=== PATIENT | male | born 1995 | race American Indian/Alaskan Native ===

== ENCOUNTER 2021-06-07 17:13 | Observation (INO) | payer OTHER ==
[2021-06-07] MEDS ORDERED: HYDROcodone/ACETAMINOPHEN 5-325 MG TAB PO ONE (19:55)
[2021-06-07] MEDS ORDERED: TETANUS,DIPH,PERTUSS(ACELL) VACCINE 0.5 ML SYRINGE IM ONE (19:55)
--- NOTE | 2021-06-07 19:57 | Emergency Department Report ---
- General Chief complaint: Extremity Injury, Upper Stated complaint: SPIDER BITE Time Seen by Provider: 06/07/21 19:45 Source: patient Mode of arrival: Ambulatory Limitations: No Limitations - History of Present Illness Initial comments: pt is a 25 yo male who presents to the ED with c/o a right hand infection that initially began last week. he states it initially started as a small bump to the dorsum of the right hand. He states he popped it on its own and there was purulent and bloody drainage. He states then over the next few days his hand became swollen, red, warm to touch. He denies any more drainage. He denies any fever, nausea, vomiting, numbness, weakness. He states he has pain with movement. Patient denies any past medical history. No allergies to medicati ons. He is unsure of his last tetanus immunization. - Related Data Allergies Allergy/AdvReac Type Severity Reaction Status Date / Time No Known Allergies Allergy Verified 06/07/21 19:59 Abscess Boil HPI - HPI Chief Complaint: Extremity Injury, Upper Stated Complaint: SPIDER BITE Time Seen by Provider: 06/07/21 19:45 Allergies/Adverse Reactions: Allergies Allergy/AdvReac Type Severity Reaction Status Date / Time No Known Allergies Allergy Verified 06/07/21 19:59 ED Review of Systems ROS: Stated complaint: SPIDER BITE Other details as noted in HPI Comment: All other systems reviewed and negative ED Past Medical Hx - Past Medical History Previous Medical History?: No - Surgical History Past Surgical History?: No ED Physical Exam - General Limitations: No Limitations General appearance: alert, in no apparent distress - Head Head exam: Present: atraumatic, normocephalic - Eye Eye exam: Present: normal appearance - ENT ENT exam: Present: mucous membranes moist - Respiratory Respiratory exam: Absent: respiratory distress, accessory muscle use - Neurological Exam Neurological exam: Present: alert, oriented X3 - Psychiatric Psychiatric exam: Present: normal affect, normal mood - Skin Skin exam: Present: warm, dry, other (small very superficial abrasion to the right dorsum of the hand, there is edema of the hand, erythema, increased warmth, no obvious fluctuance or drainage, no crepitus or necrosis, able to move the digits with some discomfort upon movement of the right little finger, neurovascularly intact) ED Course Vital Signs 06/07/21 19:26 Temperature 98.5 F Pulse Rate 107 H Respiratory 18 Rate Blood Pressure 110/72 O2 Sat by Pulse 94 Oximetry - Reevaluation(s) Reevaluation #1: 06/07/21 19:[address] Pratt, ER attending who evaluated patient at bedside, states that patient needs admission to the hospitalist service to give IV Ancef, update tetanus - Consultations Consultation #1: 06/07/21 20:06 Discussed case with OLGA Warren for Dr. Mccormack hospitalist who will accept and resume care of patient, will admit to hospital service ED Medical Decision Making - Medical Decision Making pt is a 25 yo male who presents to the ED with c/o a right hand infection that initially began last week. he states it initially started as a small bump to the dorsum of the right hand. He states he popped it on its own and there was purulent and bloody drainage. He states then over the next few days his hand became swollen, red, warm to touch. He denies any more drainage. He denies any fever, nausea, vomiting, numbness, weakness. He states he has pain with movement. Patient denies any past medical history. No allergies to medications. He is unsure of his last tetanus immunization. vss. on exam: small very superficial abrasion to the right dorsum of the hand, there is edema of the hand, erythema, increased warmth, no obvious fluctuance or drainage, no crepitus or necrosis, able to move the digits with some discomfort upon movement of the right little finger, neurovascularly intact. Examination appears consistent with [id number] cellulitis.Discussed case with Dr. Pratt, ER attending who evaluated patient at bedside, states that patient needs admission to the hospitalist service to give IV Ancef, update tetanus. Discussed case with OLGA Warren for Dr. Mccormack, hospitalist who will accept and resume care of patient, will admit to hospital service Critical care attestation.: If time is entered above; I have spent that time in minutes in the direct care of this critically ill patient, excluding procedure time. ED Disposition Clinical Impression: Cellulitis of hand Disposition: 02 [facility] Is pt being admited?: Yes Does the pt Need Aspirin: No Condition: Stable Time of Disposition: 20:07 Print Language: ICELANDIC
--- NOTE | 2021-06-07 20:02 | Event Note ---
Date of service: 06/07/21 Face to Face: For this encounter I have reviewed the PA/SUPERVISOR VARNISH documentation, treatment plan, medical decision making, and I had face to face time with this patient. Patient had presented secondary to right hand pain. He is right-hand dominant. He states that he had popped a pimple or pustule on the ulnar aspect of the right hand. This was dorsally located. Over the last 48 hours, has had significant pain and swelling. This is involving the right hand. He cannot move the right little finger without pain. He states he cannot move the wrist without pain. Patient does not know about his tetanus status. On exam, the patient has significant edema involving the ulnar aspect of the right hand that extends to the thumb area. There is erythema associate with this and warmth. There is edema involving the wrist. Patient has brisk capillary refill. Has normal sensation of the digits. There is a wound to the dorsum of the right hand in the ulnar distribution where the patient points to where he had a pustule initially.
--- NOTE | 2021-06-07 20:37 | History and Physical Report ---
History of Present Illness Date of examination: 06/07/21 Date of admission: 06/07/21 Chief complaint: arm infection/abscess History of present illness: This is a 25-year-old male seen in the ED at bedside. Patient presented in the ED with right hand infection/abscess/edema and pain. Pain level is 10/10. He said the infection started with a bump and he picked on it and he has drainage with pus. He said after "after the next day he has started swelling and getting painful and he decided to come to the hospital. He denies chest pain, shortness of breath, nausea and vomiting. He admits to tobacco use but denies chronic alcohol and drug use. I reviewed patient medication record and vital signs. Patient patient ED record she is not sure if he had had tetanus immunization. Past History Past Medical History: No medical history Past Surgical History: Other (right thumb laceration and incision as a child) Social history: smoking, other (marijuana use). denies: alcohol abuse, prescription drug abuse, IV drug use Family history: no significant family history Medications and Allergies Allergies Allergy/AdvReac Type Severity Reaction Status Date / Time No Known Allergies Allergy Verified 06/07/21 19:59 Active Meds: Active Medications Cefazolin Sodium 2 gm/ Sodium (Chloride) 100 mls @ 200 mls/hr IV ONCE ONE; Protocol Stop: 06/07/21 20:24 Review of Systems Constitutional: no weakness, no malaise Ears, nose, mouth and throat: no epistaxis, no bleeding gums Gastrointestinal: no melena Integumentary: sores, other (right arm with cellulites and abscess) Psychiatric: anxiety Hematologic/Lymphatic: no lymphedema Exam - Constitutional Vitals: Temp Pulse Resp BP Pulse Ox 98.5 F 107 H 18 110/72 94 06/07/21 19:26 06/07/21 19:26 06/07/21 19:26 06/07/21 19:26 06/07/21 19:26 General appearance: Present: mild distress, well-nourished - EENT Eyes: Present: PERRL ENT: hearing intact, clear oral mucosa - Neck Neck: Present: supple, normal ROM - Respiratory Respiratory effort: normal Respiratory: bilateral: CTA - Cardiovascular Heart Sounds: Present: S1 & S2. Absent: rub, click - Extremities Extremities: pulses symmetrical, abnormal (right arm edema and tenderness) Extremity abnormal: edema (right arm), tenderness (right arm) Peripheral Pulses: within normal limits - Abdominal General gastrointestinal: Present: soft, non-tender, non-distended, normal bowel sounds Male genitourinary: Present: normal - Integumentary Integumentary: Present: clear, warm, dry - Musculoskeletal Musculoskeletal: gait normal, strength equal bilaterally - Psychiatric Psychiatric: appropriate mood/affect, intact judgment & insight, cooperative - Neurologic Neurologic: CNII-XII intact, moves all extremities - Allied Health Allied health notes reviewed: nursing Results - Labs CBC & Chem 7: 06/07/21 20:07 06/07/21 20:07 Assessment and Plan - Patient Problems (1) Cellulitis of hand Current Visit: No Status: Inactive Plan to address problem: Right arm cellulitis and edema Empiric antibiotic Consult infectious disease x-ray right -r/o osteomylitis (2) Tobacco abuse Current Visit: No Status: Acute Plan to address problem: Patient admits tobacco use about 6 sticks daily Discussed tobacco use cessation (3) Marijuana abuse Current Visit: No Status: Acute Plan to address problem: Discussed marijuana use cessation (4) DVT prophylaxis Current Visit: Yes Status: Acute Plan to address problem: Subcutaneous Lovenox
[2021-06-07] MEDS ORDERED: NALOXONE 0.4 MG/1 ML INJ IV PRN (20:50)
[2021-06-07] MEDS ORDERED: SENNOSIDES 8.6 MG TAB PO PRN (20:50)
[2021-06-07] MEDS ORDERED: oxyCODONE /ACETAMINOPHEN 5-325MG TAB PO PRN (20:50)
[2021-06-07] MEDS ORDERED: MAGNESIUM HYDROXIDE (MOM) ORAL LIQD UDC PO PRN (20:50)
[2021-06-07] MEDS ORDERED: ALUM-MAG HYDROXIDE-SIMETHICONE 200-200-20MG/5ML ORAL LIQD 30 ML PO PRN (20:50)
[2021-06-07] MEDS ORDERED: ACETAMINOPHEN 325 MG TAB PO PRN ×2 (20:50)
[2021-06-07] MEDS ORDERED: ONDANSETRON 4 MG/2 ML INJ IV PRN (20:50)
[2021-06-07] MEDS ORDERED: HYDROmorphone 1 MG/1 ML INJ IV PRN (20:50)
[2021-06-07 20:53] LABS: Basophils % (Auto) 0.3 % (0.0-1.8); Eosinophils # (Auto) 0.1 K/mm3 (0.0-0.4); Eosinophils % (Auto) 0.7 % (0.0-4.3); Hematocrit 43.2 % (35.5-45.6); Hemoglobin 14.5 gm/dl (11.8-15.2); Lymphocytes % (Auto) 12.6 % (13.4-35.0); Mean Corpuscular HGB Conc 34 % (32-34); Mean Corpuscular Volume 91 fl (84-94); Monocytes # (Auto) 0.9 K/mm3 (0.0-0.8); Monocytes % (Auto) 11.4 % (0.0-7.3); Platelet Count 291 K/mm3 (140-440); Red Blood Count 4.77 M/mm3 (3.65-5.03); Red Cell Distribution Width 12.6 % (13.2-15.2)
[2021-06-07 20:55] LABS: Alanine Aminotransferase 21 units/L (7-56); BUN/Creatinine Ratio 10; Blood Urea Nitrogen 8 mg/dL (9-20); Calcium 9.7 mg/dL (8.4-10.2); Hemolysis Index 1
[2021-06-07] MEDS ORDERED: VANCOMYCIN 1,500 MG in SODIUM CHLORIDE 0.9% 500 ML 500 ML IV ONE (22:00)
[2021-06-07] MEDS ORDERED: VANCOMYCIN PHARMACY TO DOSE IV SCH (22:00)
[2021-06-07] MEDS: SODIUM CHLORIDE 0.9% 1000 ML 1,000 ML IV SCH (22:45)
[2021-06-07] MEDS: MORPHINE 2 MG/1 ML INJ IV PRN (22:47)
[2021-06-07] MEDS: FAMOTIDINE 20 MG/2 ML INJ IV SCH (22:48)
[2021-06-08] MEDS: AMPICILLIN/SULBACTA 3GM/100ML 3 GM/100 ML BAG IV SCH ×4 (00:14→18:00)
[2021-06-08] MEDS ORDERED: methylPREDNISolone Sod Suc 60 MG in SODIUM CHLORIDE 0.9% 100 ML IV ONE (01:37)
[2021-06-08] MEDS: SODIUM CHLORIDE 0.9% 1000 ML 1,000 ML IV SCH (02:11)
[2021-06-08] MEDS ORDERED: methylPREDNISolone Sod Succinate 40 MG/1 ML INJ IV ONE ×2 (02:20)
[2021-06-08] MEDS ORDERED: diphenhydrAMINE 50 MG/ML VIAL IV ONE (02:36)
--- NOTE | 2021-06-08 08:47 | XRay Report ---
RIGHT HAND 2 VIEWS INDICATION: pain swelling abscess/poss osteomylitis of right hand. COMPARISON: None. IMPRESSION: There is severe diffuse soft tissue swelling on the dorsum of the hand. No obvious soft tissue gas or foreign body. The bony structures appear intact with normal mineralization. No findings to suggest osteomyelitis on x-ray. No significant DJD. Signer Name: Brennan Ziegler Jr, MD Signed: 06/08/2021 8:42 AM Workstation Name: [id number]
--- NOTE | 2021-06-08 09:41 | Consultation ---
History of Present Illness Consult date: 06/08/21 Reason for consult: wound care - History of present illness History of present illness: 25-year-old male who presented to the emergency room yesterday with a right swollen hand that he says 2 to 3 days prior had a scab that he picked off and immediately drained bloody purulent fluid. He says that it got better but when he woke up the next day his hand was extremely swollen from the wrist down to his fingertips. He complains of 10 out of 10 pain and has never experienced before. He is unsure how this started and denies any definitive trauma or bug bite. Patient had an x-ray that shows no sign of gas or bony involvement. Past History Past Medical History: No medical history Past Surgical History: Other (right thumb laceration and incision as a child) Social history: smoking, other (marijuana use). denies: alcohol abuse, prescr iption drug abuse, IV drug use Family history: no significant family history Medications and Allergies Allergies Allergy/AdvReac Type Severity Reaction Status Date / Time No Known Allergies Allergy Verified 06/07/21 19:59 Active Meds: Active Medications Acetaminophen (Acetaminophen 325 Mg Tab) 650 mg PO Q4H PRN PRN Reason: Pain MILD(1-3)/Fever >100.5/WALDRON Last Admin: 06/08/21 00:11 Dose: 650 mg Documented by: Al Hydrox/Mg Hydrox/Simethicone (Alum-Mag Hydroxide-Simethicone [phone]/5ml Oral Liqd 30 Ml) 30 ml PO Q4H PRN PRN Reason: Indigestion Famotidine (Famotidine 20 Mg/2 Ml Inj) 20 mg IV BID [facility] Last Admin: 06/07/21 22:48 Dose: 20 mg Documented by: Sodium Chloride (Nacl 0.9% 1000 Ml) 1,000 mls @ 75 mls/hr IV DIRECT ERNESTO Last Admin: 06/08/21 02:11 Dose: 75 mls/hr Documented by: Ampicillin Sodium/Sulbactam Sodium (Unasyn/Ns 3 Gm/100 Ml) 3 gm in 100 mls @ 200 mls/hr IV Q6HR [facility]NE[facility]; Protocol Last Admin: 06/08/21 06:58 Dose: 200 mls/hr Documented by: Vancomycin HCl 1,250 mg/ (Sodium Chloride) 275 mls @ 166.667 mls/hr IV Q8H [facility] Magnesium Hydroxide (Magnesium Hydroxide (Mom) Oral Liqd Udc) 30 ml PO Q4H PRN PRN Reason: Constipation Morphine Sulfate (Morphine 2 Mg/1 Ml Inj) 2 mg IV Q4H PRN PRN Reason: Pain, Moderate (4-6) Last Admin: 06/07/21 22:47 Dose: 2 mg Documented by: Naloxone HCl (Naloxone 0.4 Mg/1 Ml Inj) 0.1 mg IV Q2MIN PRN PRN Reason: Res Rate </= 8 or 02 SAT < 92% Ondansetron HCl (Ondansetron 4 Mg/2 Ml Inj) 4 mg IV Q8H PRN PRN Reason: Nausea And Vomiting Oxycodone/Acetaminophen (Oxycodone /Acetaminophen 5-325mg Tab) 1 tab PO Q6H PRN PRN Reason: Pain, Moderate (4-6) Senna (Sennosides 8.6 Mg Tab) 8.6 mg PO Q12HR PRN PRN Reason: Constipation Sodium Chloride (Sodium Chloride 0.9% 10 Ml Flush Syringe) 10 ml IV BID [facility] Last Admin: 06/07/21 22:48 Dose: 10 ml Documented by: Review of Systems All systems: negative - Muskuloskeletal other (Right hand pain, swelling, limited motion due to pain) right: hand pain, hand swelling, hip stiffness Exam Vital Signs Temp Pulse Resp BP Pulse Ox 98.5 F 107 H 18 110/72 94 06/07/21 19:26 06/07/21 19:26 06/07/21 19:26 06/07/21 19:26 06/07/21 19:26 - General physical appearance Positive: well developed, well nourished, no distress, moderate pain - Respiratory Positive: normal expansion, normal respiratory effort - Cardiovascular Heart Sounds: Present: S1 & S2 - Extremities Extremities: no ischemia Extremity abnormal: other (Right hand with significant swelling wrist times the fingertips. Motion is limited due to pain and swelling but intact via intent. Area of fluctuance skin change lateral border of right hand. Brisk capillary refill with skin warm to touch.) - Neurologic Neurologic: alert and oriented to time, place and person - Musculoskeletal normal gait - Psychiatric Psychiatric: appropriate mood/affect, intact judgment & insight Results - Labs 06/07/21 20:07 06/07/21 20:07 Abnormal lab results 06/07/21 06/07/21 06/07/21 Range/Units 20:07 20:07 20:07 RDW 12.6 L (13.2-15.2) % Lymph % (Auto) 12.6 L (13.4-35.0) % White % (Auto) 11.4 H (0.0-7.3) % Lymph # (Auto) 1.0 L (1.2-5.4) K/mm3 White # (Auto) 0.9 H (0.0-0.8) K/mm3 Seg Neutrophils % 75.0 H (40.0-70.0) % BUN 8 L (9-20) mg/dL Lactic Acid 0.60 L (0.7-2.0) mmol/L Total Protein 8.3 H (6.3-8.2) g/dL Diabetes panel 06/07/21 Range/Units 20:07 Sodium 138 (137-145) mmol/L Potassium 3.7 (3.6-5.0) mmol/L Chloride 103.3 (98-107) mmol/L Carbon Dioxide 22 (22-30) mmol/L BUN 8 L (9-20) mg/dL Creatinine 0.8 (0.8-1.3) mg/dL Glucose 96 (75-100) mg/dL Calcium 9.7 (8.4-10.2) mg/dL AST 23 (5-40) units/L ALT 21 (7-56) units/L Alkaline Phosphatase 128 (35-129) units/L Total Protein 8.3 H (6.3-8.2) g/dL Albumin 4.0 (3.9-5) g/dL Calcium panel 06/07/21 Range/Units 20:07 Calcium 9.7 (8.4-10.2) mg/dL Albumin 4.0 (3.9-5) g/dL Pituitary panel 06/07/21 Range/Units 20:07 Sodium 138 (137-145) mmol/L Potassium 3.7 (3.6-5.0) mmol/L Chloride 103.3 (98-107) mmol/L Carbon Dioxide 22 (22-30) mmol/L BUN 8 L (9-20) mg/dL Creatinine 0.8 (0.8-1.3) mg/dL Glucose 96 (75-100) mg/dL Calcium 9.7 (8.4-10.2) mg/dL Adrenal panel 06/07/21 Range/Units 20:07 Sodium 138 (137-145) mmol/L Potassium 3.7 (3.6-5.0) mmol/L Chloride 103.3 (98-107) mmol/L Carbon Dioxide 22 (22-30) mmol/L BUN 8 L (9-20) mg/dL Creatinine 0.8 (0.8-1.3) mg/dL Glucose 96 (75-100) mg/dL Calcium 9.7 (8.4-10.2) mg/dL Total Bilirubin 0.50 (0.1-1.2) mg/dL AST 23 (5-40) units/L ALT 21 (7-56) units/L Alkaline Phosphatase 128 (35-129) units/L Total Protein 8.3 H (6.3-8.2) g/dL Albumin 4.0 (3.9-5) g/dL Assessment and Plan 25-year-old male with right hand swelling consistent with cellulitis possible abscess, of unclear etiology. Patient with febrile episodes. No leukocytosis. Based on exam believe patient is a candidate for incision and drainage of right hand. Patient is consent expressed understanding the risk and benefits. Keep n.p.o. until after surgery. Continue antibiotics per ID and primary.
[2021-06-08] MEDS: VANCOMYCIN 1,250 MG in SODIUM CHLORIDE 0.9% 250ML 250 ML IV SCH ×3 (10:37→21:51)
[2021-06-08] MEDS: FAMOTIDINE 20 MG/2 ML INJ IV SCH ×2 (10:40→21:51)
[2021-06-08] MEDS: MORPHINE 2 MG/1 ML INJ IV PRN ×2 (10:45→14:08)
--- NOTE | 2021-06-08 14:59 | Consultation ---
History of Present Illness - Reason for Consult Consult date: 06/08/21 hand cellulitis - History of Present Illness 25-year-old male with no medical history on 06/07/2021 secondary to 4-day history of worsening right hand edema, heat and tenderness. Right hand pain is 10 out of 10. Patient believes something in bit him. He did not see any insects. He noted a bump and was trying to squeeze it. Patient uses marijuana and alcohol. Denies IV drug use. On arrival, temperature 98.5-101.8, HR 107, RR 18, O2 sat 94%, BP 110/72. Initial WBC 8.2. Blood culture no growth to date. Review of Systems: positive in bold print General: fever, chills, malaise Cutaneous: rash, pruritus Head: headaches or injury Eyes: changes in vision, eye pain, double vision Ears: ear pain, ear discharge, ringing or hearing loss Nose: nose bleeding, stuffiness Mouth & throat: bleeding gums, horseness, no dental problems, or swollen glands Neck: no pain, node enlargement/lumps, tyroid enlargement or tenderness Respiratory: SOB, cough, ORTEGA, wheezing, sputum, hemoptysis, pleuritic chest pain Cardiovascular: chest pain, leg edema, cyanosis, ORTEGA, orthopnea Musculoskeletal: Right hand edema, erythema, heat deformities, pain Gastrointestinal: nausea, vomiting, hematemesis, diarrhea, constipation, melena, bright red blood in stools, fecal incontinence, jaundice Genitourinary/Reproductive: frequent urination, dysuria, hematuria, incontinence Neurogical: seizures, headaches, weakness, paresthesias, loss of speech or vision; memory loss, vertigo, tremors, numbness Psychiatric: stable mood; excessive anxiety, sadness or moodiness Past History Past Medical History: No medical history Past Surgical History: Other (right thumb laceration and incision as a child) Social history: smoking, other (marijuana use). denies: alcohol abuse, prescr iption drug abuse, IV drug use Family history: no significant family history Medications and Allergies Allergies Allergy/AdvReac Type Severity Reaction Status Date / Time No Known Allergies Allergy Verified 06/07/21 19:59 Active Meds: Active Medications Acetaminophen (Acetaminophen 325 Mg Tab) 650 mg PO Q4H PRN PRN Reason: Pain MILD(1-3)/Fever >100.5/WALDRON Last Admin: 06/08/21 00:11 Dose: 650 mg Documented by: Al Hydrox/Mg Hydrox/Simethicone (Alum-Mag Hydroxide-Simethicone [phone]/5ml Oral Liqd 30 Ml) 30 ml PO Q4H PRN PRN Reason: Indigestion Famotidine (Famotidine 20 Mg/2 Ml Inj) 20 mg IV BID [facility] Last Admin: 06/08/21 10:40 Dose: 20 mg Documented by: Sodium Chloride (Nacl 0.9% 1000 Ml) 1,000 mls @ 75 mls/hr IV DIRECT ERNESTO Last Admin: 06/08/21 02:11 Dose: 75 mls/hr Documented by: Ampicillin Sodium/Sulbactam Sodium (Unasyn/Ns 3 Gm/100 Ml) 3 gm in 100 mls @ 200 mls/hr IV Q6HR [facility]; Protocol Last Admin: 06/08/21 12:23 Dose: 200 mls/hr Documented by: Vancomycin HCl 1,250 mg/ (Sodium Chloride) 275 mls @ 166.667 mls/hr IV Q8H [facility] Last Admin: 06/08/21 13:50 Dose: 166.667 mls/hr Documented by: Magnesium Hydroxide (Magnesium Hydroxide (Mom) Oral Liqd Udc) 30 ml PO Q4H PRN PRN Reason: Constipation Morphine Sulfate (Morphine 2 Mg/1 Ml Inj) 2 mg IV Q4H PRN PRN Reason: Pain, Moderate (4-6) Last Admin: 06/08/21 14:08 Dose: 2 mg Documented by: Naloxone HCl (Naloxone 0.4 Mg/1 Ml Inj) 0.1 mg IV Q2MIN PRN PRN Reason: Res Rate </= 8 or 02 SAT < 92% Ondansetron HCl (Ondansetron 4 Mg/2 Ml Inj) 4 mg IV Q8H PRN PRN Reason: Nausea And Vomiting Oxycodone/Acetaminophen (Oxycodone /Acetaminophen 5-325mg Tab) 1 tab PO Q6H PRN PRN Reason: Pain, Moderate (4-6) Senna (Sennosides 8.6 Mg Tab) 8.6 mg PO Q12HR PRN PRN Reason: Constipation Sodium Chloride (Sodium Chloride 0.9% 10 Ml Flush Syringe) 10 ml IV BID [facility] Last Admin: 06/08/21 10:40 Dose: 10 ml Documented by: Physical Examination - Physical Exam Narrative exam: General appearance: Alert in NAD pleasant Eyes: anicteric sclerae, moist conjunctivae; no lid-lag; PERRLA HENT: Normocephalic, Atraumatic; normal external ears, nares open, oropharynx clear with moist mucous membranes and no oral thrush; normal hard and soft p alate. Neck: supple, tracheal midline, no JVD Lungs: CTA, with normal respiratory effort and no intercostal retractions CV: RRR no murmur Abdomen: Soft, non-tender; no masses or hepatosplenomegaly Extremities: right hand dorsal edema erythema and severe tenderness Skin: No rash. Psych: no agitated Neuro: alert and oriented x 3. Moving all extermities - Constitutional Vitals: Vital Signs Temp Pulse Resp BP Pulse Ox 97.5 F L 69 20 107/55 98 06/08/21 11:14 06/08/21 11:14 06/08/21 11:14 06/08/21 11:14 06/08/21 11:14 Temperature -Last 24 Hours Temperature 97.5 F Temperature 98.0 F Temperature 101.8 F Temperature 101.1 F Temperature 98.5 F Results - Labs CBC & Chem 7: 06/07/21 20:07 06/07/21 20:07 Labs: Abnormal lab results 06/07/21 06/07/21 06/07/21 Range/Units 20:07 20:07 20:07 RDW 12.6 L (13.2-15.2) % Lymph % (Auto) 12.6 L (13.4-35.0) % Lucas % (Auto) 11.4 H (0.0-7.3) % Lymph # (Auto) 1.0 L (1.2-5.4) K/mm3 Lucas # (Auto) 0.9 H (0.0-0.8) K/mm3 Seg Neutrophils % 75.0 H (40.0-70.0) % BUN 8 L (9-20) mg/dL Lactic Acid 0.60 L (0.7-2.0) mmol/L Total Protein 8.3 H (6.3-8.2) g/dL Assessment and Plan Cultures: Blood culture no growth today Assessment: 25-year-old male with no medical history on 06/07/2021 secondary to 4-day history of worsening right hand edema, heat and tenderness: #Sepsis: Present on admission with fever, tachycardia, likely secondary to right hand infection. #Right hand abscess: Agree with I&D. Recommendations: -Continue Unasyn IV for now -Continue vancomycin IV with PK consult, keep vancomycin trough 10 to 20 mcg/dL -Surgery on board, I agree with I&D please send deep specimen for cultures Will follow. Brianna Miller MD Infectious Diseases [facility] M [phone] O [phone]
[2021-06-08] MEDS ORDERED: LIDOCAINE MPF (2%) 20 MG/1 ML VIAL 5 ML ONE (15:54)
[2021-06-08] MEDS ORDERED: MIDAZOLAM 2 MG/2 ML INJ ONE ×2 (15:56→16:42)
[2021-06-08] MEDS ORDERED: fentaNYL 100 MCG/2 ML INJ ONE (15:56)
[2021-06-08] MEDS ORDERED: BUPIVACAINE/PF (0.25%) 2.5 MG/ML 30 ML VIAL INFILTRATI ONE (15:58)
--- NOTE | 2021-06-08 16:02 | Anesthesia Consultation ---
Anesthesia Consult and Med Hx Date of service: 06/08/21 - Airway Anesthetic Teeth Evaluation: Good ROM Head & Neck: Adequate Mental/Hyoid Distance: Adequate Mallampati Class: Class II Intubation Access Assessment: Good - Pulmonary Exam CTA: Yes - Cardiac Exam Cardiac Exam: RRR - Pre-Operative Health Status ASA Pre-Surgery Classification: ASA1 Proposed Anesthetic Plan: Local, MAC - Pulmonary Hx Smoking: Yes Hx Asthma: No COPD: No Hx Pneumonia: No - Endocrine Hx End Stage Renal Disease: No
--- NOTE | 2021-06-08 16:06 | Anesthesia Day of Surgery ---
Anesthesia Day of Surgery - Day of Surgery Patient Examined: Yes Patient H&P Reviewed: Yes Patient is NPO: Yes
[2021-06-08] MEDS ORDERED: KETAMINE/STERILE WATER 50 MG/ML SYRINGE ONE (16:40)
[2021-06-08] MEDS ORDERED: propofoL 200 MG/20 ML VIAL IV ONE ×2 (16:52→17:00)
[2021-06-08] MEDS ORDERED: SODIUM HYPOCHLORITE, DAKIN'S 1/2 STRENGTH (0.25%) 473 ML TOPICAL SOLN ONE (17:04)
--- NOTE | 2021-06-08 17:32 | Progress Note ---
Assessment and Plan Assessment and plan: #Cellulitis of hand #Sepsis secondary to cellulitis -Vitals have stabilized and are now within normal limits -Continue with vancomycin and Unasyn administration -Infectious disease consulted; appreciate recs -Surgery consulted; appreciate recs --> pending I&D later on today for appropriate source control -Blood cultures from admission pending growth -Will obtain cultures from I&D for further speciation and final antibiotic recommendations -X-ray of right hand rules out osteomyelitis #Tobacco dependence #Marijuana dependence -Patient admits to smoking 6 cigarettes daily -Discussed with patient cessation of tobacco and marijuana; patient expressed understanding -No current need for nicotine patches #DVT prophylaxis -Continue subcutaneous Lovenox 40 mg daily Disposition Plan: Pending I&D today. Total Time Spent with Patient (Minutes): 30 History Interval history: Patient endorses having difficulty due to severe pain of right hand cellulitis. Patient endorses little to no improvement with IV morphine. Denies fevers, chi lls, nausea, vomiting, abdominal pain, diarrhea, weakness, or confusion. Hospitalist Physical - Constitutional Vitals: Temp Pulse Resp BP Pulse Ox 97.5 F L 69 20 107/55 98 06/08/21 11:14 06/08/21 11:14 06/08/21 11:14 06/08/21 11:14 06/08/21 11:14 General appearance: Present: mild distress, well-nourished - EENT Eyes: Present: PERRL, EOM intact ENT: hearing intact, clear oral mucosa, dentition normal - Neck Neck: Present: supple, normal ROM - Respiratory Respiratory effort: normal - Cardiovascular Rhythm: regular Heart Sounds: Present: S1 & S2 - Extremities Extremity abnormal: edema, deformity (Significant edema, erythema, and ten derness of right hand extending to mid forearm. Inability to close hand due to edema), tenderness Peripheral Pulses: within normal limits - Abdominal General gastrointestinal: soft, non-tender, non-distended, normal bowel sounds - Integumentary Integumentary: Present: clear, warm, dry, erythema - Psychiatric Psychiatric: appropriate mood/affect, intact judgment & insight, memory intact, cooperative - Neurologic Neurologic: CNII-XII intact, moves all extremities - Allied Health Allied health notes reviewed: nursing HEART Score - HEART Score History: Slightly suspicious EKG: Non-specific Age: < 45 Risk factors: No known risk factors - Critical Actions Critical Actions: 0-3 pts:0.9-1.7%risk of adverse cardiac event.Candidate for discharge Results - Labs CBC & Chem 7: 06/07/21 20:07 06/07/21 20:07 Labs: Laboratory Last Values WBC 8.2 K/mm3 (4.5-11.0) 06/07/21 20:07 RBC 4.77 M/mm3 (3.65-5.03) 06/07/21 20:07 Hgb 14.5 gm/dl (11.8-15.2) 06/07/21 20:07 Hct 43.2 % (35.5-45.6) 06/07/21 20:07 MCV 91 fl (84-94) 06/07/21 20:07 MCH 31 pg (28-32) 06/07/21 20:07 MCHC 34 % (32-34) 06/07/21 20:07 RDW 12.6 % (13.2-15.2) L 06/07/21 20:07 Plt Count 291 K/mm3 (140-440) 06/07/21 20:07 Lymph % (Auto) 12.6 % (13.4-35.0) L 06/07/21 20:07 [place] % (Auto) 11.4 % (0.0-7.3) H 06/07/21 20:07 Eos % (Auto) 0.7 % (0.0-4.3) 06/07/21 20:07 Baso % (Auto) 0.3 % (0.0-1.8) 06/07/21 20:07 Lymph # (Auto) 1.0 K/mm3 (1.2-5.4) L 06/07/21 20:07 [place] # (Auto) 0.9 K/mm3 (0.0-0.8) H 06/07/21 20:07 Eos # (Auto) 0.1 K/mm3 (0.0-0.4) 06/07/21 20:07 Baso # (Auto) 0.0 K/mm3 (0.0-0.1) 06/07/21 20:07 Seg Neutrophils % 75.0 % (40.0-70.0) H 06/07/21 20:07 Seg Neutrophils # 6.1 K/mm3 (1.8-7.7) 06/07/21 20:07 Sodium 138 mmol/L (137-145) 06/07/21 20:07 Potassium 3.7 mmol/L (3.6-5.0) 06/07/21 20:07 Chloride 103.3 mmol/L (98-107) 06/07/21 20:07 Carbon Dioxide 22 mmol/L (22-30) 06/07/21 20:07 Anion Gap 16 mmol/L 06/07/21 20:07 BUN 8 mg/dL (9-20) L 06/07/21 20:07 Creatinine 0.8 mg/dL (0.8-1.3) 06/07/21 20:07 Estimated GFR > 60 ml/min 06/07/21 20:07 BUN/Creatinine Ratio 10 % 06/07/21 20:07 Glucose 96 mg/dL (75-100) 06/07/21 20:07 Lactic Acid 0.60 mmol/L (0.7-2.0) L 06/07/21 20:07 Calcium 9.7 mg/dL (8.4-10.2) 06/07/21 20:07 Total Bilirubin 0.50 mg/dL (0.1-1.2) 06/07/21 20:07 AST 23 units/L (5-40) 06/07/21 20:07 ALT 21 units/L (7-56) 06/07/21 20:07 Alkaline Phosphatase 128 units/L (35-129) 06/07/21 20:07 Total Protein 8.3 g/dL (6.3-8.2) H 06/07/21 20:07 Albumin 4.0 g/dL (3.9-5) 06/07/21 20:07 Albumin/Globulin Ratio 0.9 % 06/07/21 20:07 Blood Type O POSITIVE 06/07/21 23:25 Antibody Screen Negative 06/07/21 23:25 Microbiology: Microbiology 06/07/21 20:07 Peripheral/Venous Blood Culture - Preliminary Culture in Progress 06/07/21 20:07 Peripheral/Venous Blood Culture - Preliminary Culture in Progress Mercado/IV: Voiding Method Toilet Active Medications - Current Medications Current Medications: Generic Name Dose Route Start Last Admin Trade Name Tito PRN Reason Stop Dose Admin Acetaminophen 650 mg 06/07/21 20:50 06/08/21 00:11 Acetaminophen 325 Mg Tab PO 650 mg Q4H PRN Administration Pain MILD(1-3)/Fever >100.5/WALDRON Al Hydrox/Mg Hydrox/Simethicone 30 ml 06/07/21 20:50 Alum-Mag Hydroxide-Simethicone [phone]/5ml Oral Liqd 30 Ml PO Q4H PRN Indigestion Famotidine 20 mg 06/07/21 22:00 06/08/21 10:40 Famotidine 20 Mg/2 Ml Inj IV 20 mg BID ERNESTO Administration Sodium Chloride 1,000 mls @ 75 mls/hr 06/07/21 21:00 06/08/21 02:11 Nacl 0.9% 1000 Ml IV 75 mls/hr DIRECT ERNESTO Administration Ampicillin Sodium/Sulbactam Sodium 3 gm in 100 mls @ 200 mls/hr 06/08/21 00:00 06/08/21 12:23 Unasyn/Ns 3 Gm/100 Ml IV 200 mls/hr Q6HR ERNESTO Administration Protocol Vancomycin HCl 1,250 mg/ 275 mls @ 166.667 mls/hr 06/08/21 06:00 06/08/21 15:40 Sodium Chloride IV Infused Q8H ERNESTO Infusion Magnesium Hydroxide 30 ml 06/07/21 20:50 Magnesium Hydroxide (Mom) Oral Liqd Udc PO Q4H PRN Constipation Morphine Sulfate 2 mg 06/07/21 20:50 06/08/21 14:08 Morphine 2 Mg/1 Ml Inj IV 2 mg Q4H PRN Administration Pain, Moderate (4-6) Naloxone HCl 0.1 mg 06/07/21 20:50 Naloxone 0.4 Mg/1 Ml Inj IV Q2MIN PRN Res Rate </= 8 or 02 SAT < 92% Ondansetron HCl 4 mg 06/07/21 20:50 Ondansetron 4 Mg/2 Ml Inj IV Q8H PRN Nausea And Vomiting Oxycodone/Acetaminophen 1 tab 06/07/21 20:50 Oxycodone /Acetaminophen 5-325mg Tab PO Q6H PRN Pain, Moderate (4-6) Senna 8.6 mg 06/07/21 20:50 Sennosides 8.6 Mg Tab PO Q12HR PRN Constipation Sodium Chloride 10 ml 06/07/21 22:00 06/08/21 10:40 Sodium Chloride 0.9% 10 Ml Flush Syringe IV 10 ml BID ERNESTO Administration
[2021-06-08] MEDS ORDERED: SODIUM HYPOCHLORITE, DAKIN'S 1/2 STRENGTH (0.25%) 473 ML TOPICAL SOLN IR ONE (17:42)
[2021-06-08] MEDS ORDERED: SODIUM CHLORIDE 0.9% IRR 1,500 ML BOTTLE IR ONE (17:44)
[2021-06-08] MEDS ORDERED: MORPHINE 2 MG/1 ML INJ IV PRN (17:59)
--- NOTE | 2021-06-08 18:03 | Operative Report ---
Operative Report Operative Report: Date: June 08, 2021 Surgeon: Ambrose Yeager MD Preop diagnosis: Right hand abscess Postop diagnosis: Same as preop Procedure performed: Incision and drainage of right hand abscess Anesthesia: Right axillary regional block, MAC Indication: Patient is a 25-year-old male who says that approximate 3 days ago he acquired a sore on his hand that he picked at draining some purulent/bloody material. After that it began to swell and become more painful and he presented to the emergency room. Upon examination patient had fluctuance on the lateral aspect of his right hand. Patient was consented for incision and drainage of right hand abscess. Details of procedure: Patient was brought into the OR suite after having a right axillary regional block placed by anesthesia preop. He is placed on the OR table in supine position. His right arm down to the fingertips was prepped and draped in sterile fashion. MAC anesthesia was induced to make the patient comfortable. After timeout an 11 blade scalpel was used to make an incision along the most fluctuant portion of the lateral part of his right hand. There was immediate influence of blood mixed with purulent fluid. There was undermining along the dorsal aspect of his hand, unroofing any additional abscess pockets. There was dissection to underneath the subcutaneous adipose tissue and the muscle and tendons. The cavity was then irrigated with normal saline. Hemostasis was achieved with a combination of electrocautery, and packing gauze that was used dipped in quarter percent Dakin solution. A wound culture for both aerobic and anaerobic bacteria was obtained and sent to pathology. Patient's wound was then covered with a sterile dressing, he was awoken up and taken to recovery in stable condition. Patient tolerated procedure well all counts were correct. Specimens: Wound culture EBL: 30 mL Complications: None immediate
[2021-06-08] MEDS: KETOROLAC 30 MG/1 ML INJ IV SCH (18:13)
[2021-06-08] MEDS: oxyCODONE /ACETAMINOPHEN 5-325MG TAB PO PRN (21:50)
[2021-06-09] MEDS: KETOROLAC 30 MG/1 ML INJ IV SCH ×4 (00:45→18:20)
[2021-06-09] MEDS: AMPICILLIN/SULBACTA 3GM/100ML 3 GM/100 ML BAG IV SCH ×4 (00:46→19:54)
[2021-06-09] MEDS: oxyCODONE /ACETAMINOPHEN 5-325MG TAB PO PRN ×3 (04:35→19:00)
[2021-06-09 06:20] LABS: Basophils % (Auto) 0.1 % (0.0-1.8); Eosinophils # (Auto) 0.1 K/mm3 (0.0-0.4); Eosinophils % (Auto) 0.6 % (0.0-4.3); Hematocrit 34.8 % (35.5-45.6); Hemoglobin 11.8 gm/dl (11.8-15.2); Lymphocytes # (Auto) 1.7 K/mm3 (1.2-5.4); Lymphocytes % (Auto) 16.7 % (13.4-35.0); Mean Corpuscular HGB Conc 34 % (32-34); Mean Corpuscular Volume 90 fl (84-94); Monocytes # (Auto) 1.2 K/mm3 (0.0-0.8); Monocytes % (Auto) 11.4 % (0.0-7.3); Platelet Count 239 K/mm3 (140-440); Red Blood Count 3.86 M/mm3 (3.65-5.03); Red Cell Distribution Width 13.1 % (13.2-15.2)
[2021-06-09 06:39] LABS: Blood Urea Nitrogen 13 mg/dL (9-20); Calcium 8.6 mg/dL (8.4-10.2); Hemolysis Index 7
[2021-06-09] MEDS: VANCOMYCIN 1,250 MG in SODIUM CHLORIDE 0.9% 250ML 250 ML IV SCH ×3 (06:43→21:29)
[2021-06-09 06:58] LABS: BUN/Creatinine Ratio 19
[2021-06-09] MEDS: FAMOTIDINE 20 MG/2 ML INJ IV SCH (09:46)
--- NOTE | 2021-06-09 10:34 | Progress Note ---
Assessment and Plan Cultures: Blood culture no growth today OR culture pending Assessment: 25-year-old male with no medical history on 06/07/2021 secondary to 4 -day history of worsening right hand edema, heat and tenderness: #Sepsis: Improving, likely secondary to right hand infection. #Right hand abscess: Agree with I&D. Recommendations: -Continue Unasyn IV for now -Continue vancomycin IV with PK consult, keep vancomycin trough 10 to 20 mcg/dL -Follow-up OR cultures -Patient requesting more pain medicine however he wants to go home today, explained cultures are pending. -If patient demands to go home today okay to discharge on Augmentin 875 twice d aily and doxycycline p.o. twice daily total 10 days (extended due to hand location) -ID clinic follow-up in 2 weeks Will follow. Brianna Miller MD Infectious Diseases [employer] [facility], [place], [facility]ated [facility] ([facility]) M [phone] O [phone] Subjective Date of service: 06/09/21 Interval history: Patient reports 10 of 10 hand pain. Requesting more pain medicine. Objective - Exam Narrative Exam: General appearance: Alert in NAD pleasant Eyes: anicteric sclerae, moist conjunctivae; no lid-lag; PERRLA HENT: Normocephalic, Atraumatic; normal external ears, nares open, oropharynx clear Neck: supple, tracheal midline, no JVD Lungs: CTA, with normal respiratory effort and no intercostal retractions CV: RRR no murmur Abdomen: Soft, non-tender; no masses or hepatosplenomegaly Extremities: right hand covered with surgical dressing Skin: No rash. Psych: no agitated Neuro: alert and oriented x 3. Moving all extermities - Constitutional Vitals: Vital Signs Temp Pulse Resp BP Pulse Ox 97.3 F L 49 L 20 111/69 100 06/09/21 07:35 06/09/21 07:35 06/09/21 08:15 06/09/21 07:35 06/09/21 07:35 Temperature -Last 24 Hours Temperature 97.3 F Temperature 96.6 F Temperature 98.5 F Temperature 97.1 F Temperature 97.2 F Temperature 98.1 F Temperature 98 F Temperature 97.5 F - Labs CBC & Chem 7: 06/09/21 05:19 06/09/21 05:19 Labs: Abnormal lab results 06/09/21 06/09/21 Range/Units 05:19 05:19 Hct 34.8 L D (35.5-45.6) % RDW 13.1 L (13.2-15.2) % [place] % (Auto) 11.4 H (0.0-7.3) % [place] # (Auto) 1.2 H (0.0-0.8) K/mm3 Seg Neutrophils % 71.2 H (40.0-70.0) % Sodium 135 L (137-145) mmol/L Creatinine 0.7 L (0.8-1.3) mg/dL Glucose 106 H (75-100) mg/dL
[2021-06-09] MEDS ORDERED: HYDROcodone/ACETAMINOPHEN 5-325 MG TAB PO PRN (12:30)
--- NOTE | 2021-06-09 14:38 | Progress Note ---
Assessment and Plan Assessment and plan: #Cellulitis of hand #Sepsis secondary to cellulitis -Vitals have stabilized and are now within normal limits -Continue with vancomycin and Unasyn administration -Infectious disease consulted; appreciate recs -Status post I&D of right hand cellulitis on 06/08/2021; pending culture results -Blood cultures from admission with no growth to date -X-ray of right hand rules out osteomyelitis #Tobacco dependence #Marijuana dependence -Patient admits to smoking 6 cigarettes daily -Discussed with patient cessation of tobacco and marijuana; patient expressed understanding -No current need for nicotine patches #DVT prophylaxis -Continue subcutaneous Lovenox 40 mg daily Disposition Plan: Pending possible discharge tomorrow History Interval history: Patient underwent I&D of right hand for source control of cellulitis. Patient denies fevers, chills, nausea, vomiting, abdominal pain, diarrhea, chest pain, shortness of breath, urinary symptoms, headache, weakness, or altered mentation. Hospitalist Physical - Constitutional Vitals: Temp Pulse Resp BP Pulse Ox 97.3 F L 49 L 20 111/69 100 06/09/21 07:35 06/09/21 07:35 06/09/21 08:15 06/09/21 07:35 06/09/21 07:35 General appearance: Present: no acute distress, well-nourished - EENT Eyes: Present: PERRL, EOM intact ENT: hearing intact, clear oral mucosa, dentition normal - Neck Neck: Present: supple, normal ROM - Respiratory Respiratory effort: normal Respiratory: negative: CTA, diminished, rales, rhonchi, wheezing, other - Cardiovascular Rhythm: regular Heart Sounds: Present: S1 & S2 - Extremities Extremities: no ischemia, pulses intact, pulses symmetrical Extremity abnormal: edema, tenderness (Appropriate tenderness of right hand and lower forearm) Peripheral Pulses: within normal limits - Abdominal General gastrointestinal: soft, non-tender, non-distended, normal bowel sounds - Integumentary Integumentary: Present: clear, warm, dry - Psychiatric Psychiatric: appropriate mood/affect, intact judgment & insight, memory intact, cooperative - Neurologic Neurologic: CNII-XII intact - Allied Health Allied health notes reviewed: nursing HEART Score - HEART Score History: Slightly suspicious EKG: Non-specific Age: < 45 Risk factors: No known risk factors - Critical Actions Critical Actions: 0-3 pts:0.9-1.7%risk of adverse cardiac event.Candidate for discharge Results - Labs CBC & Chem 7: 06/09/21 05:19 06/09/21 05:19 Labs: Laboratory Last Values WBC 10.4 K/mm3 (4.5-11.0) 06/09/21 05:19 RBC 3.86 M/mm3 (3.65-5.03) 06/09/21 05:19 Hgb 11.8 gm/dl (11.8-15.2) 06/09/21 05:19 Hct 34.8 % (35.5-45.6) L D 06/09/21 05:19 MCV 90 fl (84-94) 06/09/21 05:19 MCH 31 pg (28-32) 06/09/21 05:19 MCHC 34 % (32-34) 06/09/21 05:19 RDW 13.1 % (13.2-15.2) L 06/09/21 05:19 Plt Count 239 K/mm3 (140-440) 06/09/21 05:19 Lymph % (Auto) 16.7 % (13.4-35.0) 06/09/21 05:19 [place] % (Auto) 11.4 % (0.0-7.3) H 06/09/21 05:19 Eos % (Auto) 0.6 % (0.0-4.3) 06/09/21 05:19 Baso % (Auto) 0.1 % (0.0-1.8) 06/09/21 05:19 Lymph # (Auto) 1.7 K/mm3 (1.2-5.4) 06/09/21 05:19 [place] # (Auto) 1.2 K/mm3 (0.0-0.8) H 06/09/21 05:19 Eos # (Auto) 0.1 K/mm3 (0.0-0.4) 06/09/21 05:19 Baso # (Auto) 0.0 K/mm3 (0.0-0.1) 06/09/21 05:19 Seg Neutrophils % 71.2 % (40.0-70.0) H 06/09/21 05:19 Seg Neutrophils # 7.4 K/mm3 (1.8-7.7) 06/09/21 05:19 Sodium 135 mmol/L (137-145) L 06/09/21 05:19 Potassium 3.7 mmol/L (3.6-5.0) 06/09/21 05:19 Chloride 104.6 mmol/L (98-107) 06/09/21 05:19 Carbon Dioxide 22 mmol/L (22-30) 06/09/21 05:19 Anion Gap 12 mmol/L 06/09/21 05:19 BUN 13 mg/dL (9-20) 06/09/21 05:19 Creatinine 0.7 mg/dL (0.8-1.3) L 06/09/21 05:19 Estimated GFR > 60 ml/min 06/09/21 05:19 BUN/Creatinine Ratio 19 % 06/09/21 05:19 Glucose 106 mg/dL (75-100) H 06/09/21 05:19 Lactic Acid 0.60 mmol/L (0.7-2.0) L 06/07/21 20:07 Calcium 8.6 mg/dL (8.4-10.2) 06/09/21 05:19 Total Bilirubin 0.50 mg/dL (0.1-1.2) 06/07/21 20:07 AST 23 units/L (5-40) 06/07/21 20:07 ALT 21 units/L (7-56) 06/07/21 20:07 Alkaline Phosphatase 128 units/L (35-129) 06/07/21 20:07 Total Protein 8.3 g/dL (6.3-8.2) H 06/07/21 20:07 Albumin 4.0 g/dL (3.9-5) 06/07/21 20:07 Albumin/Globulin Ratio 0.9 % 06/07/21 20:07 Blood Type O POSITIVE 06/07/21 23:25 Antibody Screen Negative 06/07/21 23:25 Microbiology: Microbiology 06/08/21 Unknown Hand - Right Surgical Culture - Preliminary 06/07/21 20:07 Peripheral/Venous Blood Culture - Preliminary NO GROWTH AFTER 24 HOURS 06/07/21 20:07 Peripheral/Venous Blood Culture - Preliminary NO GROWTH AFTER 24 HOURS Mercado/IV: Voiding Method Toilet Active Medications - Current Medications Current Medications: Generic Name Dose Route Start Last Admin Trade Name Freq PRN Reason Stop Dose Admin Acetaminophen 650 mg 06/07/21 20:50 06/08/21 00:11 Acetaminophen 325 Mg Tab PO 650 mg Q4H PRN Administration Pain MILD(1-3)/Fever >100.5/WALDRON Hydrocodone Bitart/Acetaminophen 2 each 06/09/21 12:30 Hydrocodone/Acetaminophen 5-325 Mg Tab PO Q4H PRN Pain, Moderate (4-6) Al Hydrox/Mg Hydrox/Simethicone 30 ml 06/07/21 20:50 Alum-Mag Hydroxide-Simethicone [phone]/5ml Oral Liqd 30 Ml PO Q4H PRN Indigestion Diphenhydramine HCl 25 mg 06/09/21 14:00 Diphenhydramine 25 Mg Cap PO QHS PRN Itching Famotidine 20 mg 06/09/21 22:00 Famotidine 20 Mg Tab PO BID ERNESTO Sodium Chloride 1,000 mls @ 75 mls/hr 06/07/21 21:00 06/08/21 02:11 Nacl 0.9% 1000 Ml IV 75 mls/hr DIRECT ERNESTO Administration Ampicillin Sodium/Sulbactam Sodium 3 gm in 100 mls @ 200 mls/hr 06/08/21 00:00 06/09/21 06:43 Unasyn/Ns 3 Gm/100 Ml IV 200 mls/hr Q6HR ERNESTO Administration Protocol Vancomycin HCl 1,250 mg/ 275 mls @ 166.667 mls/hr 06/08/21 06:00 06/09/21 06:43 Sodium Chloride IV 88 mls/hr Q8H ERNESTO Administration Ketorolac Tromethamine 30 mg 06/08/21 18:00 06/09/21 06:41 Ketorolac 30 Mg/1 Ml Inj IV 06/13/21 17:59 30 mg Q6HR ERNESTO Administration Magnesium Hydroxide 30 ml 06/07/21 20:50 Magnesium Hydroxide (Mom) Oral Liqd Udc PO Q4H PRN Constipation Naloxone HCl 0.1 mg 06/07/21 20:50 Naloxone 0.4 Mg/1 Ml Inj IV Q2MIN PRN Res Rate </= 8 or 02 SAT < 92% Ondansetron HCl 4 mg 06/07/21 20:50 Ondansetron 4 Mg/2 Ml Inj IV Q8H PRN Nausea And Vomiting Senna 8.6 mg 06/07/21 20:50 Sennosides 8.6 Mg Tab PO Q12HR PRN Constipation Sodium Chloride 10 ml 06/07/21 22:00 06/08/21 21:51 Sodium Chloride 0.9% 10 Ml Flush Syringe IV 10 ml BID ERNESTO Administration
--- NOTE | 2021-06-09 16:31 | Progress Note ---
Assessment and Plan Postop day #1 status post incision and drainage of right hand abscess. Patient is afebrile and stable. Pain is adequately controlled. Cultures are still pending. Follow-up on cultures to tailor antibiotics. Continue current antibiotic therapy per ID. Continue hand elevation to improve swelling. Patient will need packing changes daily. Subjective Date of service: 06/09/21 Narrative: No acute events overnight. Patient says that the pain in his hand is improved compared to prior to procedure. Patient was placed in a shoulder sling to elevate his hand. Objective Vital Signs - 12hr 06/09/21 06/09/21 07:35 08:15 Temperature 97.3 F L Pulse Rate 49 L Respiratory 18 20 Rate Blood Pressure 111/69 O2 Sat by Pulse 100 Oximetry - General physical appearance well developed, no distress, moderate pain - Respiratory normal expansion, normal respiratory effort - Integumentary other - Musculoskeletal other (Dressing was removed. Hand was swollen from the wrist distal to the hand. Most the swelling I believe is due to the [place] dressing. Packing was removed there was no purulent drainage, odor, or increased erythema. Hand was appropriately tender to palpation. Packing was replaced and external wrap) - Labs 06/09/21 05:19 06/09/21 05:19 Diabetes panel 06/09/21 Range/Units 05:19 Sodium 135 L (137-145) mmol/L Potassium 3.7 (3.6-5.0) mmol/L Chloride 104.6 (98-107) mmol/L Carbon Dioxide 22 (22-30) mmol/L BUN 13 (9-20) mg/dL Creatinine 0.7 L (0.8-1.3) mg/dL Glucose 106 H (75-100) mg/dL Calcium 8.6 (8.4-10.2) mg/dL Calcium panel 06/09/21 Range/Units 05:19 Calcium 8.6 (8.4-10.2) mg/dL Pituitary panel 06/09/21 Range/Units 05:19 Sodium 135 L (137-145) mmol/L Potassium 3.7 (3.6-5.0) mmol/L Chloride 104.6 (98-107) mmol/L Carbon Dioxide 22 (22-30) mmol/L BUN 13 (9-20) mg/dL Creatinine 0.7 L (0.8-1.3) mg/dL Glucose 106 H (75-100) mg/dL Calcium 8.6 (8.4-10.2) mg/dL Adrenal panel 06/09/21 Range/Units 05:19 Sodium 135 L (137-145) mmol/L Potassium 3.7 (3.6-5.0) mmol/L Chloride 104.6 (98-107) mmol/L Carbon Dioxide 22 (22-30) mmol/L BUN 13 (9-20) mg/dL Creatinine 0.7 L (0.8-1.3) mg/dL Glucose 106 H (75-100) mg/dL Calcium 8.6 (8.4-10.2) mg/dL
[2021-06-09] MEDS: diphenhydrAMINE 25 MG CAP PO PRN ×2 (16:50→21:29)
[2021-06-09] MEDS: FAMOTIDINE 20 MG TAB PO SCH (21:29)
[2021-06-10] MEDS: AMPICILLIN/SULBACTA 3GM/100ML 3 GM/100 ML BAG IV SCH ×2 (00:58→06:18)
[2021-06-10] MEDS: KETOROLAC 30 MG/1 ML INJ IV SCH ×2 (00:59→06:18)
[2021-06-10] MEDS: oxyCODONE /ACETAMINOPHEN 5-325MG TAB PO PRN ×2 (01:00→08:28)
[2021-06-10] MEDS: VANCOMYCIN 1,250 MG in SODIUM CHLORIDE 0.9% 250ML 250 ML IV SCH (06:17)
[2021-06-10 06:26] LABS: Basophils % (Auto) 0.2 % (0.0-1.8); Eosinophils # (Auto) 0.1 K/mm3 (0.0-0.4); Eosinophils % (Auto) 1.4 % (0.0-4.3); Hematocrit 35.2 % (35.5-45.6); Hemoglobin 11.7 gm/dl (11.8-15.2); Lymphocytes # (Auto) 2.1 K/mm3 (1.2-5.4); Mean Corpuscular HGB Conc 33 % (32-34); Mean Corpuscular Volume 90 fl (84-94); Monocytes # (Auto) 0.6 K/mm3 (0.0-0.8); Monocytes % (Auto) 9.1 % (0.0-7.3); Platelet Count 248 K/mm3 (140-440); Red Blood Count 3.91 M/mm3 (3.65-5.03); Red Cell Distribution Width 12.7 % (13.2-15.2)
[2021-06-10 06:48] LABS: Blood Urea Nitrogen 11 mg/dL (9-20); Calcium 8.5 mg/dL (8.4-10.2); Hemolysis Index 4
[2021-06-10 06:50] LABS: BUN/Creatinine Ratio 18
[2021-06-10] MEDS: FAMOTIDINE 20 MG TAB PO SCH (08:27)
[2021-06-10 09:43] VITALS: BP 123/75
--- NOTE | 2021-06-10 12:36 | Discharge Summary ---
Providers - Providers Date of Admission: 06/07/21 20:07 Date of discharge: 06/10/21 Attending physician: KINDRA HILLIARD MD 06/07/21 20:50 Consult to Physician [CONS] Routine Comment: Consulting Provider: LUIS FLYNN Physician Instructions: Reason For Exam: cellulites of hand 06/08/21 06:39 Consult to Physician [CONS] Routine Comment: Consulting Provider: RICHMOND SAAVEDRA Physician Instructions: Reason For Exam: Hand abscess Primary care physician: SHOE POLISHER Hospitalization Reason for admission: Cellulitis of right hand Condition: Good Pertinent studies: Reviewed Procedures: I&D of right hand Hospital course: The patient is a 25-year-old male with past medical history of tobacco dependence and marijuana usage who presented after 1 week of worsening tenderness, erythema, purulent drainage from his right hand, and decreased loss of function of his right hand. The patient described popping a pimple on the dorsal aspect of his right palm resulting in drainage of purulent fluid. He presented after worsening swelling and pain. On presentation, the patient was found to be febrile and mildly tachycardic. X-ray of the hand was negative for osteomyelitis. Patient was started on IV vancomycin and Unasyn for antibiotic coverage. The patient underwent I&D on 06/08/2021 with no complications. ID was consulted for antibiotic recommendations. Original blood cultures from admission are negative to growth to date. The patient was discharged on Augmentin 875 mg twice daily and doxycycline 100 mg twice daily for total of 10 days. The patient was counseled on return to hospital precautions such as fevers, chills, nausea vomiting, worsening infection, or lack of overall improvement. The patient will follow up with ID in 2 weeks. Patient was also counseled on completing the entire antibiotic course. Patient expressed understanding. Discharged home. Disposition: 01 HOME / SELF CARE / HOMELESS Final Discharge Diagnosis (Prints w/discharge instructions): Cellulitis of right hand Time spent for discharge: 30 min Core Measure Documentation - Palliative Care Palliative Care/ Comfort Measures: Not Applicable - Core Measures Any of the following diagnoses?: none - VTE Discharge Requirements Deep Vein Thrombosis/Pulmonary Embolism Present on Admission: No - Acute [place] Discharge Requirements Aspirin at discharge: No Reason for no aspirin on DC: Medical contraindication (Aspirin not needed with this particular medical condition) MICKEY/ARB for LVSD if EF <40%: Not Applicable Beta lainey at discharge: No Reason for no beta lainey on DC: Medical contraindication (Beta-lainey not needed with this particular medical condition) Statin for LDL = or >100 mg/dl on DC: Not Applicable Reason for no statin on DC: Medical contraindication (Statin not needed with this particular medical condition) - Heart Failure Discharge Requirements MICKEY/ARB for LVSD if EF <40%: Not Applicable - Stroke Discharge Requirements Statin for LDL = or >70 mg/dl on DC: Not Applicable Exam - Constitutional Vitals: Temp Pulse Resp BP Pulse Ox 98.0 F 48 L 20 123/75 99 06/10/21 08:20 06/10/21 08:20 06/10/21 08:28 06/10/21 08:20 06/10/21 08:20 General appearance: Present: no acute distress - EENT Eyes: Present: PERRL, EOM intact ENT: hearing intact, clear oral mucosa, dentition normal - Neck Neck: Present: supple, normal ROM - Respiratory Respiratory effort: normal - Cardiovascular Rhythm: regular Heart Sounds: Present: S1 & S2 - Extremities Extremities: no ischemia, pulses intact, pulses symmetrical, normal temperature, normal color Extremity abnormal: edema, tenderness (Appropriate tenderness of right hand and lower forearm. Wrapped in Mickey bandage.) Peripheral Pulses: within normal limits - Abdominal General gastrointestinal: Present: soft, non-tender, non-distended, normal bowel sounds Male genitourinary: Present: deferred - Rectal Rectal Exam: deferred - Integumentary Integumentary: Present: clear, warm, dry (Unable to fully visualize right hand 2/2 it being wrapped in Mickey bandage) - Musculoskeletal Musculoskeletal: other (Improved strength of right hand from previous day) - Psychiatric Psychiatric: appropriate mood/affect, intact judgment & insight, memory intact, cooperative - Neurologic Neurologic: CNII-XII intact, moves all extremities - Allied Health Allied health notes reviewed: nursing Plan Activity: advance as tolerated Weight Bearing Status: Weight Bear as Tolerated Diet: regular Wound: keep clean and dry, change dressing, per your surgeon's advice Health Concerns: Return to hospital if you experience fevers, chills, worsening pain, spreading of infection, or lack of overall improvement. Follow up with: RYAN ABRAMS MD [Staff Physician] - 14 Days (Follow up with Infectious Disease in clinic) PRIMARY CARE, [Primary Care Provider] - 3-5 Days Prescriptions: Amoxicillin/Potassium Clav [Augmentin 875-125 Tablet] 1 each PO BID 10 Days tablet Doxycycline Monohydrate [Doxycycline Monohydrate CAP] 100 mg PO BID 10 Days capsule
== END 2021-06-10 11:16 | disposition home or self-care (01) ==
LOC: ED 17:13 → 3A 20:07 → 4A 23:04
PROVIDERS: ADMIT Internal Medicine; ATTEND Student in an Organized Health Care Education/Training Program
DX: A41.9 Sepsis, unspecified organism (principal); L03.113 Cellulitis of right upper limb; F12.10 Cannabis abuse, uncomplicated; F17.210 Nicotine dependence, cigarettes, uncomplicated; Z79.899 Other long term (current) drug therapy
CPT/HCPCS: 10061; 36415; 73120; 80048; 80053; 80202; 82140; 83735; 84100; 85025; 86403; 86850; 86900; 86901; 87040; 87075; 87076; 87116; 87186; 90471; 90715; 96365; 96366; 96367; 96368; 96375; 96376; 99284; A6260; G0378; J0295; J0690; J1200; J1885; J2250; J2270; J2704; J2920; J3010; J3370; J3490; J7030; J7040; J7050